=== PATIENT | male | born 1945 | race Caucasian/White ===

== ENCOUNTER 2024-01-21 08:17 | Day surgery (SDC) | payer MEDICARE, BC ==
[2024-01-21] MEDS: Lactated Ringers 1,000 ML IV SCH (08:34)
[2024-01-21] MEDS ORDERED: Midazolam 1 MG/ML 2 ML SDV ONE (10:14)
[2024-01-21] MEDS ORDERED: fentaNYL 100 MCG/2 ML SDV ONE (10:14)
[2024-01-21] MEDS ORDERED: Propofol 200 MG/20 ML SDV ONE (10:14)
== END 2024-01-21 12:10 | disposition home or self-care (01) ==
LOC: VM.SDS 08:17
PROVIDERS: ATTEND Family Medicine
DX: Z12.11 Encounter for screening for malignant neoplasm of colon (principal); D12.8 Benign neoplasm of rectum; I10 Essential (primary) hypertension; E11.9 Type 2 diabetes mellitus without complications; E78.5 Hyperlipidemia, unspecified; I25.10 Atherosclerotic heart disease of native coronary artery without angina pectoris; Z79.84 Long term (current) use of oral hypoglycemic drugs; Z79.899 Other long term (current) drug therapy; Z88.0 Allergy status to penicillin; Z88.6 Allergy status to analgesic agent
CPT/HCPCS: 00811; 82947; 88305; 93005; 99100; J2250; J2704; J3010; J7120